=== PATIENT | male | born 1975 | race Caucasian/White ===

== ENCOUNTER 2018-09-10 19:47 | Emergency (ER) | payer OTHER ==
[~2018-09-10] VITALS: Ht 172.7 cm; Wt 89.8 kg
[2018-09-10] MEDS ORDERED: NORCO 5-325 TA1 EACH PO (20:16)
[2018-09-10] MEDS ORDERED: VALIUM5 MG PO (21:25)
[2018-09-10] MEDS ORDERED: MOBIC15 MG PO (21:25)
== END 2018-09-10 21:56 | disposition home or self-care (01) ==
LOC: ER 19:47
DX: M75.101 Unspecified rotator cuff tear or rupture of right shoulder, not specified as traumatic (principal)

== ENCOUNTER 2020-12-30 20:50 | Emergency (ER) | payer OTHER ==
[~2020-12-30] VITALS: Ht 175.3 cm; Wt 90.7 kg
[~2020-12-30 20:50] MED LIST: MOBIC15 MG PO; NORCO 5-325 TA1 EACH PO; VALIUM5 MG PO
[2020-12-30 21:00] VITALS: BP 133/97
== END 2020-12-30 21:29 | disposition home or self-care (01) ==
LOC: ER 20:50
DX: R20.2 Paresthesia of skin (principal); Z79.899 Other long term (current) drug therapy; Z88.5 Allergy status to narcotic agent